=== PATIENT | male | born 1995 | race Caucasian/White ===

== ENCOUNTER 2023-03-19 13:48 | Emergency (ER) | payer MEDICAID ==
[~2023-03-19] VITALS: Ht 177.8 cm; Wt 94.8 kg
[2023-03-19 14:17] VITALS: BP 129/65
[2023-03-19] MEDS ORDERED: LIDOCAINE MPF 1% 10 MG/ML VIAL INJ ONE (15:35)
[2023-03-19] MEDS ORDERED: BACITRACIN OINT 500 UNITS/GM PKT TP ONE (15:35)
[2023-03-19] MEDS ORDERED: IBUP-2213 PO (16:17)
[2023-03-19] MEDS ORDERED: BACI-416 TP (16:17)
--- NOTE | 2023-03-19 17:15 | NUR ---
Patient discharged with v/s stable. Written and verbal after care instructions given and explained. Patient alert, oriented and verbalized understanding of instructions. Ambulatory with steady gait. All questions addressed prior to discharge. ID band removed. Patient advised to follow up with PMD. Rx of BACITRACIN, MOTRIN given. Patient educated on indication of medication including possible reaction and side effects. Opportunity to ask questions provided and answered.
== END 2023-03-19 17:15 | disposition home or self-care (01) ==
LOC: MED 13:48
DX: S61.411A Laceration without foreign body of right hand, initial encounter (principal); X50.1XXA Overexertion from prolonged static or awkward postures, initial encounter; Y93.89 Activity, other specified; Y92.89 Other specified places as the place of occurrence of the external cause; Y99.8 Other external cause status
CPT/HCPCS: 12001; 90471; 90715; 99283

== ENCOUNTER 2023-03-21 10:11 | Emergency (ER) | payer MEDICAID ==
[~2023-03-21] VITALS: Ht 182.9 cm; Wt 93.0 kg
[~2023-03-21 10:11] MED LIST: BACI-416 TP; IBUP-2213 PO
[2023-03-21 10:52] VITALS: BP 119/72
[2023-03-21] MEDS ORDERED: BACITRACIN OINT 500 UNITS/GM PKT TP ONE (11:30)
--- NOTE | 2023-03-21 11:33 | NUR ---
wound to r palm irrigated, dressed and bandaged
--- NOTE | 2023-03-21 11:47 | NUR ---
Patient discharged with v/s stable. Written and verbal after care instructions given and explained. Patient verbalized understanding. Ambulatory with steady gait. All questions addressed prior to discharge. Advised to follow up with PMD.
== END 2023-03-21 11:47 | disposition home or self-care (01) ==
LOC: MED 10:11
DX: S61.411D Laceration without foreign body of right hand, subsequent encounter (principal); Z48.01 Encounter for change or removal of surgical wound dressing; Z79.1 Long term (current) use of non-steroidal anti-inflammatories (NSAID); Z79.2 Long term (current) use of antibiotics; W45.8XXD Other foreign body or object entering through skin, subsequent encounter
CPT/HCPCS: 82948; 99282